=== PATIENT | male | born 1950 | race Caucasian/White ===

== ENCOUNTER 2019-08-20 16:14 | Inpatient (IN) | payer OTHER ==
[2019-08-20 16:36] LABS: #Eosinphils 0.1 thou/uL (0.0-0.7); #Monocytes 0.7 thou/uL (0.11-0.59); #Neutrophils 5.6 thou/uL (1.40-6.50); %Basophils 0.1 % (0.0-1.0); %Eosinophils 1.1 % (0.0-10.0); %Lymphocytes 13.8 % (21.0-51.0); %Monocytes 9.8 % (0.0-10.0); %Neutrophils 75.3 % (42.0-75.0); Mean Corpuscular HGB CONC 32.7 g/dL (32.0-36.0); Mean Corpuscular Hemoglobin 28.8 pg (27.0-31.0); Mean Corpuscular Volume 88.2 fL (78.0-98.0); Mean Platelet Volume 8.6 fL (7.4-10.4); Platelet Count 171 thou/uL (130-400); RBC Distribution Width 15.6 % (11.5-14.5); Red Blood Cell (RBC) Count 4.17 mill/uL (4.70-6.10); White Blood Cell (WBC) Count 7.5 thou/uL (4.8-10.8)
--- NOTE | 2019-08-20 16:53 | RAD ---
Exam: Chest one view HISTORY:Chest pain Comparison: None FINDINGS: Cardiac silhouette: Normal. There are sternotomy wires. Aorta: Unremarkable Pulmonary vessels: Normal. Surgical clips in the left hilum. Costophrenic angles: Clear LUNGS: Patchy interstitial and alveolar opacities. Pneumothorax: None Osseous abnormalities: None IMPRESSION: Patchy interstitial and alveolar opacities. Correlate for edema and/or infiltrate.
[2019-08-20 17:06] LABS: ALT (SGPT) 24 U/L (8-55); AST (SGOT) 20 U/L (5-34); Albumin 3.6 g/dL (3.4-4.8); Alkaline Phosphatase 191 U/L (40-110); Anion Gap 15 mmol/L (10-20); BUN (Urea Nitrogen) 17 mg/dL (8.4-25.7); Bilirubin, Total 0.2 mg/dL (0.2-1.2); Calc. Creatinine Clearance 0 mL/min (70-130); Calcium 8.3 mg/dL (7.8-10.44); Carbon Dioxide 21 mmol/L (23-31); Chloride 107 mmol/L (98-107); Estimated GFR-MDRD 85; Glucose 122 mg/dL (80-115); Protein, Total 6.6 g/dL (5.8-8.1); Sodium 139 mmol/L (136-145)
[2019-08-20 17:30] LABS: CKMB 1.8 ng/mL (0-6.6)
[2019-08-20 20:12] LABS: Troponin I 0.077 ng/mL (< 0.028)
[2019-08-20 21:26] VITALS: BMI 32.4
[2019-08-20] MEDS ORDERED: Nitroglycerin 0.4 MG TAB 1 EACH PO PRN (22:38)
[2019-08-20] MEDS ORDERED: Morphine 2 MG/ML SYRINGE SLOW IVP PRN (22:38)
[2019-08-20] MEDS ORDERED: traMADol HCl 50 MG TAB PO PRN (22:38)
[2019-08-20] MEDS: Nitroglycerin 0.4 MG TAB (25 Tab Bottle) SL PRN (23:02)
[2019-08-21] MEDS ORDERED: Enoxaparin Sodium 100 MG/ML SYRINGE SC SCH (00:15)
[2019-08-21 00:23] LABS: CKMB 8.8 ng/mL (0-6.6)
[2019-08-21] MEDS ORDERED: Dextrose 50% Abboject 50 ML SYRINGE SLOW IVP PRN (00:35)
[2019-08-21] MEDS ORDERED: Dextrose 5% in Water 1,000 ML IV PRN (00:35)
[2019-08-21] MEDS ORDERED: Insulin Regular 300 UNITS/3 ML VIAL SC PRN (00:35)
[2019-08-21] MEDS ORDERED: Ondansetron PF 4 MG/2 ML Vial IVP PRN (00:36)
[2019-08-21] MEDS ORDERED: Ondansetron ODT 4 MG TAB PO PRN (00:36)
[2019-08-21] MEDS ORDERED: Calcium Carbonate 500 MG ChewTAB PO PRN (00:36)
[2019-08-21] MEDS ORDERED: Acetaminophen 325 MG TAB PO PRN (00:36)
[2019-08-21] MEDS: Nitroglycerin 2% Ointment 1 INCH/1 GM Packet TOP SCH ×4 (00:50→23:49)
[2019-08-21] MEDS ORDERED: PROVENTIL INHALER 6.7 G (200 INHALATIONS) INH PRN (00:51)
[2019-08-21] MEDS ORDERED: Aspirin 325 MG TAB PO SCH (01:00)
--- NOTE | 2019-08-21 01:04 | HP ---
The patient was seen and examined on July,. CHIEF COMPLAINT: Chest discomfort. HISTORY OF PRESENT ILLNESS: The patient is a 69-year-old male with coronary artery disease, status post CABG; diabetes mellitus type 2; hypertension; peripheral arterial disease, status post stents, presented to the emergency room with chest discomfort. The patient underwent coronary artery bypass grafting in 2004. He had 7 ND post coronary artery bypass grafting. He currently has approximately 4 stents in the coronaries and 2 to 3 stents in the bilateral lower extremities. He is a poor historian and is unable to provide further details. He has chronic anginal pain , which improves with sublingual nitroglycerin. He takes sublingual nitroglycerin several times a week. He is an inmate. Around 2:00 p.m., he had sudden onset of chest discomfort that was substernal, associated with some shortness of breath and mild lightheadedness. He denies any nausea, vomiting, or diaphoresis. No syncope or palpitations reported. He had orthopnea; however, he attributes that to COPD. He denies recent immobilization or travel. When EMS arrived, his heart rate was in 40s. His pain was 5/10, constant. He took 3 nitroglycerin without much relief. PAST MEDICAL HISTORY: 1. Coronary artery disease, status post CABG in 2004. 2. Status post ND, post CABG, requiring several stents placement. He denies any stents prior to CABG. 3. Peripheral arterial disease, status post stents. 4. Chronic obstructive pulmonary disease. 5. Hypertension. 6. Diabetes mellitus type 2. 7. Diabetic neuropathy. 8. History of prostate cancer. 9. Hypothyroidism. 10. Gastroesophageal reflux disease. 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 12. Schizoaffective disorder. PAST SURGICAL HISTORY: 1. Coronary artery bypass grafting in 2004. 2. Coronary stents placement. 3. Bilateral lower extremity stent. SOCIAL HISTORY: The patient is a former smoker. No current use of alcohol, tobacco, or drug use. Full code. DPOA - family. Inmate. FAMILY HISTORY: Negative for heart disease. ALLERGIES: NO KNOWN DRUG ALLERGIES. HOME MEDICATIONS: 1. Aspirin 81 mg daily. 2. Carbamazepine 200 mg at bedtime. 3. Colace 100 mg b.i.d. 4. Albuterol inhaler as needed. 5. Sublingual nitroglycerin as needed. 6. Cymbalta 60 mg daily and 30 mg at bedtime. 7. Flovent 1 puff b.i.d. 8. Lasix 5 mg b.i.d. 9. Novolin N 33 units in the morning and 18 units at night. 10. Novolin R 5 units b.i.d. 11. Isosorbide mononitrate 120 mg daily. 12. Levothyroxine 75 mcg daily. 13. Lisinopril 2.5 mg daily. 14. Metformin 1000 mg b.i.d. 15. Metoprolol tartrate 75 mg b.i.d. 16. Dulera two puffs b.i.d. 17. Omeprazole 20 mg daily. 18. Potassium chloride 10 mEq daily. 19. Ranitidine 150 mg b.i.d. 20. Crestor 40 mg daily. 21. Terazosin 5 mg at bedtime. 22. Spiriva 18 mcg daily. REVIEW OF SYSTEMS: All other review of systems was reviewed and were found negative. PHYSICAL EXAMINATION: VITAL SIGNS: Temperature 98, respirations of 21, pulse rate of 51, blood pressure of 143/77, O2 saturations 97% on room air. GENERAL: A 69-year-old male, in no apparent distress. Denies any chest discomfort at this time. HEENT: Head, atraumatic and normocephalic. Sclerae anicteric. Moist mucous membranes. No oral lesion. NECK: Supple. No JVD. No carotid bruit. LUNGS: Clear to auscultation bilaterally. No wheezing, rales, or rhonchi. HEART: S1 and S2 present. Regular rate and rhythm. No rubs or gallops. Healed midline scar from previous CABG. ABDOMEN: Soft, obese. Bowel sounds present. No rebound or guarding. EXTREMITIES: Chronic edema in the left lower extremity per patient report. No calf tenderness. SKIN: Warm and dry. LYMPH NODES: No palpable lymph nodes in the neck. Peripheral vascular radial pulses palpable bilaterally. MUSCULOSKELETAL: No joint swelling tenderness. SKIN: Warm and dry. LYMPH NODE: No palpable lymph nodes in the neck. LABORATORY FINDINGS: WBC 7.5, hemoglobin 12, platelet of 171. Troponin of 0.029 on admission, repeat troponin was 0.432. CK-MB is pending at this time. Creatinine 0.89, sodium 139, potassium 4. LFTs otherwise in normal range except for alkaline phosphatase 191. BNP was 324. IMAGING STUDIES: Chest x-ray by my review showed probable pulmonary vascular congestion. EKG by my review showed sinus bradycardia with nonspecific ST-T wave changes in the lateral lead along with incomplete right bundle-branch block. IMPRESSION: 1. [id number] myocardial infarction. 2. Acute on chronic congestive heart failure exacerbation, ejection fraction unknown. 3. Diabetes mellitus type 2 with diabetic neuropathy. 4. Obesity with a BMI of 32.5. 5. Anemia, normochromic normocytic, suspected chronic. 6. Chronic kidney disease, stage 2. 7. Chronic obstructive pulmonary disease, appears to be compensated. 8. Benign prostatic hypertrophy/prostate cancer. 9. Gastroesophageal reflux disease. 10. Hypothyroidism. 11. Schizoaffective disorder. PLAN: The patient will be monitored on the telemetry unit. We will require 2 to 3 days for stabilization. We will start him on Lovenox 1 mg/kg. Nitro patch. IV diuretics. Echocardiogram will be obtained. We will try to obtain records from [facility]. Consult Cardiology. Continue aspirin along with AKIRA inhibitor. We will reduce metoprolol to 50 mg b.i.d. due to bradycardia. Resume other home medications. Nebulizer treatments as needed. Recheck troponin in a.m. Plan of care was discussed with the patient in detail. He stated understanding. Please note that, the patient was seen and examined on July,. Job ID: [id number] MTDD
[2019-08-21] MEDS: Ipratropium Bromide 2.5 ml Neb NEB SCH ×4 (03:17→19:07)
[2019-08-21] MEDS: Furosemide 20 MG/2 ML VIAL SLOW IVP SCH ×2 (05:28→14:53)
[2019-08-21] MEDS: Levothyroxine Sodium 75 MCG TAB PO SCH (05:28)
[2019-08-21] MEDS: Mometasone 100 MCG HFA INHALER INH SCH ×2 (06:58→19:05)
[2019-08-21 07:52] LABS: ALT (SGPT) 19 U/L (8-55); AST (SGOT) 26 U/L (5-34); Albumin 3.7 g/dL (3.4-4.8); Alkaline Phosphatase 198 U/L (40-110); Anion Gap 13 mmol/L (10-20); BUN (Urea Nitrogen) 13 mg/dL (8.4-25.7); Bilirubin, Total 0.3 mg/dL (0.2-1.2); Calc. Creatinine Clearance 118 mL/min (70-130); Calcium 8.5 mg/dL (7.8-10.44); Carbon Dioxide 23 mmol/L (23-31); Chloride 108 mmol/L (98-107); Estimated GFR-MDRD Greater than 90; Globulin 3.3 g/dL (2.4-3.5); Glucose 126 mg/dL (80-115); Sodium 140 mmol/L (136-145)
[2019-08-21 08:01] LABS: Band 4 % (5-11); Hemoglobin 12.2 g/dL (14.0-18.0); Lymphocytes 29 % (21-51); MDiff Complete? YES; Mean Corpuscular HGB CONC 32.4 g/dL (32.0-36.0); Mean Corpuscular Volume 89.3 fL (78.0-98.0); Mean Platelet Volume 9.1 fL (7.4-10.4); Monocytes 3 % (0-10); Neutrophil 64 % (42-75); Platelet Count 177 thou/uL (130-400); RBC Distribution Width 15.9 % (11.5-14.5); Red Blood Cell (RBC) Count 4.21 mill/uL (4.70-6.10); White Blood Cell (WBC) Count 6.2 thou/uL (4.8-10.8)
[2019-08-21 08:29] LABS: CKMB 30.8 ng/mL (0-6.6)
[2019-08-21] MEDS: Aspirin 325 mg Enteric Coated Tablet PO SCH (09:59)
[2019-08-21] MEDS: Potassium Chloride 10 MEQ TAB PO SCH ×2 (09:59→17:30)
[2019-08-21] MEDS: Enoxaparin Sodium 100 MG/ML SYRINGE SC SCH ×2 (09:59→20:09)
[2019-08-21] MEDS: Lisinopril 2.5 MG TAB PO SCH (09:59)
[2019-08-21] MEDS: Metoprolol Tartrate 50 MG TAB PO SCH ×2 (09:59→20:08)
[2019-08-21] MEDS: DULoxetine 60 MG CAP PO SCH (09:59)
--- NOTE | 2019-08-21 11:54 | CON ---
DATE OF CONSULTATION: 08/21/2019 INDICATION FOR CONSULTATION: A 69-year-old patient with non-ST segment elevation myocardial infarction. HISTORY OF PRESENT ILLNESS: This very unfortunate 69-year-old gentleman, who is incarcerated, has had a history of bypass surgery approximately 20 years ago. He said he had three-vessel bypass. He had seven myocardial infarction after that according to his records, he also had stent placement in the coronary artery. He also has peripheral vascular disease, which he has also undergone stent placement. His last apparent cardiac catheterization or stents were in 2011 and he thinks this is mainly these stents were placed in his legs, iliacs or superficial femoral arteries. He is uncertain as to where they were. Yesterday, while he was in the shelter, he was starting to lie down for a nap and thus he had some chest discomfort. He became short of breath. He took 2 nitroglycerins. Then, the pain did not resolve. He then went on and took another third nitroglycerin and then, went to the [facility], where he was given aspirin. The pain did not resolve. He presented to the emergency room and was admitted here to rule out myocardial infarction. The first set of cardiac enzymes showed a troponin I of 0.077, the second set was 0.432, and the third set is 3.746 compatible with a non-ST segment elevation myocardial infarction. The EKG does show a sinus rhythm with diffuse ST-segment changes, but no ST-segment elevation. He does have multiple risk factors for his disease. He has hypertension, hypercholesterolemia, and diabetes. I am uncertain whether or not his diabetes is under reasonable control, but he continues to have issues obviously and most likely progression of disease associated with his risk factors. His bypass surgery was at [facility] in [place], he said in 2004. The stents were placed in [place] and also the peripheral stents also he said were placed in [place]. At this time, his pain is now 1/10, when he said the worst he got prior to him being admitted was 8/10. Normally, he takes his nitroglycerin for these episodes and they resolve, but this time it did not. PAST MEDICAL HISTORY: Significant for the coronary artery disease as noted above with bypass surgery, angioplasty and stent placement. COPD, diabetes, hypertension, Hernandez palsy, gastroesophageal reflux disease, hypothyroidism, and prostate cancer. He has had right hand and wrist surgery. He has a schizoaffective disorder. He has peripheral vascular disease. He has undergone stent placement. He has peptic ulcer disease, this may be gastroesophageal reflux disease. It is also noted in the previous history of present illness, he said he last saw a maintenance mgr two years ago in [place]. SOCIAL HISTORY: He is incarcerated. He stopped smoking about 10 years ago. FAMILY HISTORY: He has had his mother had congestive heart failure. One brother has heart disease. He does not know exactly what it is. ALLERGIES: NONE. MEDICATIONS: Extensive list includes; 1. Carbamazepine. 2. Duloxetine. 3. Insulin. 4. Novolin N and as well as Novolin R. 5. He is on Crestor. 6. Spiriva inhaler. 7. Aspirin 81 mg a day. 8. Docusate sodium. 9. Dulera inhaler. 10. Flovent inhaler. 11. Furosemide 20 mg b.i.d. 12. Isosorbide mononitrate 60 mg a day. 13. Levothyroxine. 14. Lisinopril. 15. Metformin. 16. Metoprolol 25 mg twice a day, and is also another order here for 50 mg tablets twice a day, apparently he takes 75 mg twice a day. 17. Nitroglycerin as needed. 18. Omeprazole. 19. Potassium. 20. Proventil inhaler. 21. Ranitidine. 22. Terazosin. 23. At this time, he has been given Lovenox. REVIEW OF SYSTEMS: He complains of problems with his right eye after the Hernandez palsy. He does have some problems with vision based on that. He comes with shortness of breath with COPD. He has asthma. He has gastroesophageal reflux disease. He has had left leg edema, which had been present since after his surgery. He complains of recent coughing and congestion. Otherwise, 12-point review of systems is unremarkable. PHYSICAL EXAMINATION: GENERAL: Reveals a somewhat overweight elderly gentleman. VITAL SIGNS: Blood pressure 145/66, heart rate is 61, he is afebrile, and respiratory rate is 18. HEENT: Reveals head to be normocephalic and atraumatic. Carotid pulses are present. He has bilateral carotid bruits. This may be radiation from the aortic area. CHEST: Clear to auscultation. There were no rales, rhonchi, or wheezing. CARDIOVASCULAR: Reveals a regular rate and rhythm. I did not hear any bruits or thrills; however, he does have murmurs over the aortic area. It is also at the apex compatible with most likely some aortic valve sclerosis or stenosis as well as mitral valve regurgitation. He also has some systolic murmur at the lower sternal border, most likely compatible with some also tricuspid valve regurgitation. ABDOMEN: Soft and obese. Positive bowel sounds are present. EXTREMITIES: Show no clubbing or cyanosis. The left leg has 1+ lower extremity edema. He has well-healed surgical incision in the left lower extremity after saphenous vein graft bypass or vein graft retrieval. He has decreased femoral pulses, but any bilateral femoral bruits were noted. He also has a right palpable popliteal pulse. The left popliteal pulse is very difficult to palpate and the left pedal pulses are not palpable. I could palpate the right dorsalis pedis. NEUROLOGIC: The patient appears to be intact at this time. He is obviously in restraints due to him being a prisoner. SKIN: Warm and dry. LABORATORY DATA: EKG shows a normal sinus rhythm with diffuse ST-segment changes with some T-wave flattening and T-wave inversions throughout all leads either biphasic T-waves or either slight ST-segment depression. His chest x-ray, which was done yesterday afternoon shows some patchy infiltrates, some slight opacities, which appear to be slight either edema or infiltrates. There was no significant indication that he has any acute pulmonary edema. IMPRESSION AND PLAN: 1. Elderly gentleman with a history of known coronary artery disease, who is now suffered a non-ST segment elevation myocardial infarction. At this time, we will continue medical management with Lovenox since his pain has decreased down to 1 and his EKG still does not show ST-segment elevation. We will try to obtain the records from his last cardiac catheterization to determine whether or not he will be a candidate to undergo cardiac catheterization or not. Most likely, it will be somewhat difficult since he has peripheral vascular disease also, but he does have a right palpable pulse in the right groin, which is easily palpable or it is more easily palpable than the left and was still be a candidate if indicated. We will continue to trend his cardiac enzymes and we will continue his medications. We will review his medications and we will adjust as needed. We will continue the Lovenox for now and most likely he will need to undergo cardiac catheterization unless the reports of the last cardiac catheterization to see that he is not amenable to any further interventions. 2. History of diabetes. This will be dealt with by the Primary Care Service. His blood sugar appears to be under relatively good control at this time. His blood sugar this morning was 126. 3. History of chronic obstructive pulmonary disease. This also appears to be significant problem. He says he is unable to walk very far due to his chronic obstructive pulmonary disease and he developed chest pain. 4. History of hypertension, which is under good control. 5. Hypercholesterolemia. We will continue his statin medications. I will be more than happy to continue to follow this patient until we can decide whether or not he needs to proceed with cardiac catheterization or medical management. Job ID: [id number]
[2019-08-21 12:01] LABS: Troponin I 5.191 ng/mL (< 0.028)
[2019-08-21 14:18] LABS: Hemoglobin 12.2 g/dL (14.0-18.0); Platelet Count 158 thou/uL (130-400)
[2019-08-21 16:49] LABS: Troponin I 5.296 ng/mL (< 0.028)
[2019-08-21] MEDS: Nitroglycerin 0.4 MG TAB (25 Tab Bottle) SL PRN ×2 (18:59→19:07)
--- NOTE | 2019-08-21 19:06 | PDOC.HOSPP ---
- Subjective Encounter Date: 08/21/19 Encounter Time: 11:00 Subjective: Patient complains of pain in lower chest/abdomen area, states it is like a pressure. He states it was relieved with nitro-patch. No shortness of breath. Troponin positive and trending up. Cardiology involved. Plan for cath tomorrow - Objective Vital Signs & Weight: Vital Signs (12 hours) Temp Pulse Pulse Pulse Resp BP BP 08/21/19 16:33 97.5 F L 64 18 08/21/19 13:54 64 20 08/21/19 12:06 65 67 176/76 H 195/81 H 08/21/19 11:47 98.5 F 60 16 08/21/19 09:59 61 08/21/19 07:53 97.8 F 61 17 BP Pulse Ox Pulse Ox Pulse Ox 08/21/19 16:33 156/77 H 99 08/21/19 13:54 98 08/21/19 12:06 96 97 08/21/19 11:47 145/65 H 96 08/21/19 09:59 08/21/19 07:53 145/61 H 96 Weight Weight 221 lb I&O: 08/20/19 08/21/19 08/22/19 06:59 06:59 06:59 Intake Total 1000 Output Total 1150 Balance -150 Result Diagrams: 08/21/19 14:10 08/21/19 14:10 Additional Labs: Accuchecks 08/21/19 08/21/19 08/21/19 16:51 10:38 05:31 POC Glucose 129 H 134 H 127 H 08/20/19 21:15 POC Glucose 221 H Hospitalist ROS - Review of Systems Constitutional: denies: fever, chills - Medication Medications: Active Medications Generic Name Dose Route Start Last Admin Trade Name Freq PRN Reason Stop Dose Admin Acetaminophen 650 mg 08/21/19 00:36 08/21/19 00:50 Tylenol PO 650 mg Q4H PRN Administration Headache/Fever/Mild Pain (1-3) Albuterol/Ipratropium 3 ml 08/21/19 00:23 08/21/19 13:54 Duoneb NEB 3 ml Q4H PRN Administration SOB &/or Wheezing Aspirin 325 mg 08/21/19 09:00 08/21/19 09:59 Ecotrin PO 325 mg DAILY OMER Administration Duloxetine HCl 60 mg 08/21/19 09:00 08/21/19 09:59 Cymbalta PO 60 mg DAILY OMER Administration Enoxaparin Sodium 100 mg 08/21/19 09:00 08/21/19 09:59 Lovenox SC 08/21/19 21:30 100 mg 0900,2100 OMER Administration Furosemide 20 mg 08/21/19 06:00 08/21/19 14:53 Lasix SLOW IVP 20 mg 0600,1400 [facility] Administration Ipratropium [place] 2.5 ml 08/21/19 01:00 08/21/19 13:57 Atrovent NEB Not Given [id number] [facility] Levothyroxine Sodium 75 mcg 08/21/19 06:00 08/21/19 05:28 Synthroid PO 75 mcg 0600 [facility] Administration Lisinopril 2.5 mg 08/21/19 09:00 08/21/19 09:59 Zestril PO 2.5 mg DAILY [facility] Administration Metoprolol Tartrate 50 mg 08/21/19 09:00 08/21/19 09:59 Lopressor PO 50 mg BID [facility] Administration Mometasone Furoate 1 puff 08/21/19 06:30 08/21/19 06:58 Asmanex Hfa 100 Mcg INH 1 puff BID-RT [facility] Administration Nitroglycerin 0.4 mg 08/20/19 22:54 08/20/19 23:02 Nitrostat SL 0.4 mg Q5MIN PRN Administration Chest Pain Nitroglycerin 1 inch 08/21/19 01:00 08/21/19 17:31 Nitro-Bid 2% Ointment TOP 1 inch 0100,0900,1700 [facility] Administration Pantoprazole Sodium 40 mg 08/21/19 09:00 08/21/19 09:59 Protonix PO 40 mg DAILY [facility] Administration Potassium Chloride 10 meq 08/21/19 08:00 08/21/19 17:30 Klor-Con 10 PO 10 meq BID-WM [facility] Administration Tramadol HCl 50 mg 08/20/19 22:38 08/21/19 00:50 Ultram PO 50 mg Q4H PRN Administration Moderate Pain (4-6) - Exam General Appearance: NAD, awake alert General - other findings: appears to be in discomfort from pain Eye: PERRL, anicteric sclera ENT: normocephalic atraumatic, no oropharyngeal lesions, dry oral mucosa Neck: supple, symmetric, no JVD, no thyromegaly Heart: RRR, no murmur, no gallops, no rubs Respiratory: CTAB, no wheezes, no rales, no ronchi Gastrointestinal: soft, non-tender, non-distended, normal bowel sounds Extremities: no cyanosis, no clubbing, no edema Skin: normal turgor, no lesions, no rashes Neurological: cranial nerve grossly intact, normal sensation to touch, no focal deficits, no new deficit Hosp A/P - Plan This is 69 year old male with history of hypertension, diabetes, CAD, PVD who presented with chest pain, adimtted for NSTEMI #NSTEMI #Hypertension #Hypercholesterolemia - continue aspirin 325 mg daily, lovenox, lisinopril, metoprolol 50 mg bid, nitroglycerin, rosuvastatin - cardiology consulted, obtained outpatient records. Troponin trending up to > 5. Plan for cath tomorrow Diabetes type II - sliding scale - diabetic diet Peripheral vascular disease - continue aspirin Anemia - Hb 12, RDW elevated - check iron panel tomorrow COPD - continue breathing treatments Hypothyroidism - levothyroxine BPH - terazosin Schizoaffective - tegretol Code status: full code DVT prophylaxis : therapeutic lovenox Diet: NPO after midnight
[2019-08-21] MEDS ORDERED: Communication Order-Pharmacy FS SCH (20:00)
[2019-08-21] MEDS: Communication Order-Pharmacy FS SCH (20:06)
[2019-08-21] MEDS: Rosuvastatin 20 MG TAB PO SCH (20:07)
[2019-08-21] MEDS: Terazosin HCl 5 MG CAP PO SCH (20:08)
[2019-08-21] MEDS: DULoxetine 30 MG CAP PO SCH (20:08)
[2019-08-21] MEDS: carBAMazepine 200 MG TAB PO SCH (20:08)
[2019-08-22] MEDS: Ipratropium Bromide 2.5 ml Neb NEB SCH ×4 (01:48→20:27)
[2019-08-22 05:29] LABS: #Lymphocytes 0.9 thou/uL (1.20-3.40); #Monocytes 0.7 thou/uL (0.11-0.59); #Neutrophils 4.6 thou/uL (1.40-6.50); %Basophils 0.2 % (0.0-1.0); %Eosinophils 0.7 % (0.0-10.0); %Lymphocytes 14.9 % (21.0-51.0); %Monocytes 10.8 % (0.0-10.0); %Neutrophils 73.4 % (42.0-75.0); Hemoglobin 10.8 g/dL (14.0-18.0); Mean Corpuscular HGB CONC 33.5 g/dL (32.0-36.0); Mean Corpuscular Hemoglobin 29.2 pg (27.0-31.0); Mean Corpuscular Volume 87.3 fL (78.0-98.0); Mean Platelet Volume 9.2 fL (7.4-10.4); Platelet Count 162 thou/uL (130-400); RBC Distribution Width 15.7 % (11.5-14.5); Red Blood Cell (RBC) Count 3.71 mill/uL (4.70-6.10); White Blood Cell (WBC) Count 6.3 thou/uL (4.8-10.8)
[2019-08-22 05:52] LABS: Iron 28 ug/dL (65-175); Iron Binding Capacity, Total 248 mcg/dL (261-462)
[2019-08-22 05:54] LABS: ALT (SGPT) 16 U/L (8-55); AST (SGOT) 17 U/L (5-34); Albumin 3.2 g/dL (3.4-4.8); Alkaline Phosphatase 160 U/L (40-110); Anion Gap 11 mmol/L (10-20); BUN (Urea Nitrogen) 18 mg/dL (8.4-25.7); Bilirubin, Total 0.4 mg/dL (0.2-1.2); Calc. Creatinine Clearance 116 mL/min (70-130); Calcium 8.3 mg/dL (7.8-10.44); Carbon Dioxide 24 mmol/L (23-31); Chloride 109 mmol/L (98-107); Estimated GFR-MDRD 89; Globulin 2.8 g/dL (2.4-3.5); Glucose 155 mg/dL (80-115); Iron 28 ug/dL (65-175); Iron Binding Capacity, Total 248 mcg/dL (261-462); Potassium 3.8 mmol/L (3.5-5.1); Sodium 140 mmol/L (136-145)
[2019-08-22] MEDS: Furosemide 20 MG/2 ML VIAL SLOW IVP SCH ×2 (05:56→13:20)
[2019-08-22] MEDS: Nitroglycerin 2% Ointment 1 INCH/1 GM Packet TOP SCH ×2 (05:57→16:49)
[2019-08-22] MEDS: Levothyroxine Sodium 75 MCG TAB PO SCH (05:59)
[2019-08-22] MEDS: Lisinopril 2.5 MG TAB PO SCH (05:59)
[2019-08-22] MEDS: Aspirin 325 mg Enteric Coated Tablet PO SCH (05:59)
[2019-08-22] MEDS: DULoxetine 60 MG CAP PO SCH (05:59)
[2019-08-22] MEDS: Metoprolol Tartrate 50 MG TAB PO SCH ×2 (05:59→20:38)
[2019-08-22 07:31] LABS: Cardiac Risk 3.6 (Less than 4.5)
[2019-08-22] MEDS: Mometasone 100 MCG HFA INHALER INH SCH ×2 (07:43→20:27)
[2019-08-22] MEDS ORDERED: Lidocaine 1% (PF) 30 ML VIAL ONE (09:18)
[2019-08-22] MEDS ORDERED: Iopamidol 370 76% 100 ML VIAL ONE (09:37)
[2019-08-22] MEDS ORDERED: Sodium Chloride 0.9% 200 ML IV PRN (10:59)
[2019-08-22] MEDS ORDERED: Nitroglycerin 0.4 MG TAB (25 Tab Bottle) SL PRN (10:59)
[2019-08-22] MEDS ORDERED: Acetaminophen/Codeine 30-300mg Tablet PO PRN ×2 (10:59)
[2019-08-22] MEDS: Potassium Chloride 10 MEQ TAB PO SCH ×2 (11:09→16:49)
[2019-08-22 14:47] LABS: Troponin I 2.633 ng/mL (< 0.028)
--- NOTE | 2019-08-22 17:28 | PDOC.HOSPP ---
- Subjective Encounter Date: 08/22/19 Encounter Time: 17:26 Subjective: Patient had cardiac cath today. All vessels patent. Has chronic total occlusion of main vessels. Patient states his chest pain has significantly improved since receiving ranolazine. Wants to get that at home but worried about the cost. Patient reports shortness of breath on exertion. Wants oxygen on discharge. O2 sat 98% on room air at rest, but drops to 85% on exertion, so patient qualifies for 2L of oxygen. Patient d/c but unable to get bed today at [facility] - Objective Vital Signs & Weight: Vital Signs (12 hours) Temp Pulse Pulse Pulse Resp BP BP 08/22/19 16:00 98.0 F 61 18 08/22/19 14:05 67 66 131/71 08/22/19 12:58 66 18 08/22/19 07:50 98.1 F 57 L 18 08/22/19 07:34 56 L 20 08/22/19 05:59 65 149/70 H BP BP Pulse Ox Pulse Ox Pulse Ox Pulse Ox Pulse Ox 08/22/19 16:00 117/58 L 96 08/22/19 14:05 160/58 H 88 L 91 L 84 L 94 L 08/22/19 12:58 98 08/22/19 07:50 116/64 96 08/22/19 07:34 99 08/22/19 05:59 Weight Weight 216 lb 1.6 oz I&O: 08/21/19 08/22/19 08/23/19 06:59 06:59 06:59 Intake Total 1480 Output Total 1750 Balance -270 Result Diagrams: 08/22/19 04:33 08/22/19 04:33 Additional Labs: Accuchecks 08/22/19 08/22/19 08/22/19 15:58 11:02 05:37 POC Glucose 187 H 135 H 164 H 08/21/19 20:16 POC Glucose 137 H Hospitalist ROS - Review of Systems Constitutional: denies: fever, chills ENT: denies: ear discharge, mouth swelling Cardiovascular: denies: chest pain, palpitations Gastrointestinal: denies: vomiting - Medication Medications: Active Medications Generic Name Dose Route Start Last Admin Trade Name Freq PRN Reason Stop Dose Admin Acetaminophen 650 mg 08/21/19 00:36 08/21/19 00:50 Tylenol PO 650 mg Q4H PRN Administration Headache/Fever/Mild Pain (1-3) Albuterol/Ipratropium 3 ml 08/21/19 00:23 08/22/19 07:34 Duoneb NEB 3 ml Q4H PRN Administration SOB &/or Wheezing Aspirin 325 mg 08/21/19 09:00 08/22/19 05:59 Ecotrin PO 325 mg DAILY OMER Administration Carbamazepine 200 mg 08/21/19 21:00 08/21/19 20:08 Tegretol PO 200 mg HS OMER Administration Duloxetine HCl 30 mg 08/21/19 21:00 08/21/19 20:08 Cymbalta PO 30 mg HS OMER Administration Duloxetine HCl 60 mg 08/21/19 09:00 08/22/19 05:59 Cymbalta PO 60 mg DAILY OMER Administration Furosemide 20 mg 08/21/19 06:00 08/22/19 13:20 Lasix SLOW IVP 20 mg 0600,1400 OMER Administration Ipratropium [place] 2.5 ml 08/21/19 01:00 08/22/19 12:58 Atrovent NEB 2.5 ml [id number] OMER Administration Levothyroxine Sodium 75 mcg 08/21/19 06:00 08/22/19 05:59 Synthroid PO 75 mcg 0600 OMER Administration Lisinopril 2.5 mg 08/21/19 09:00 08/22/19 05:59 Zestril PO 2.5 mg DAILY OMER Administration Metoprolol Tartrate 50 mg 08/21/19 09:00 08/22/19 05:59 Lopressor PO 50 mg BID OMER Administration Miscellaneous Information 0 each 08/21/19 09:30 08/21/19 20:06 Communication Order-Pharmacy FS Not Given 0930 OMER Mometasone Furoate 1 puff 08/21/19 06:30 08/22/19 07:43 Asmanex Hfa 100 Mcg INH 1 puff BID-RT OMER Administration Nitroglycerin 1 inch 08/21/19 01:00 08/22/19 16:49 Nitro-Bid 2% Ointment TOP 1 inch 0100,0900,1700 OMER Administration Pantoprazole Sodium 40 mg 08/21/19 09:00 08/22/19 05:59 Protonix PO 40 mg DAILY OMER Administration Potassium Chloride 10 meq 08/21/19 08:00 08/22/19 16:49 Klor-Con 10 PO 10 meq BID-WM OMER Administration Rosuvastatin Calcium 40 mg 08/21/19 21:00 08/21/19 20:07 Crestor PO 40 mg HS OMER Administration Sodium Chloride 10 ml 08/21/19 00:36 08/21/19 20:09 Flush - Normal Saline IVF 10 ml PRN PRN Administration Saline Flush Terazosin HCl 5 mg 08/21/19 21:00 08/21/19 20:08 Hytrin PO 5 mg HS OMER Administration Tramadol HCl 50 mg 08/20/19 22:38 08/21/19 00:50 Ultram PO 50 mg Q4H PRN Administration Moderate Pain (4-6) - Exam General Appearance: NAD, awake alert Eye: PERRL, anicteric sclera ENT: normocephalic atraumatic, no oropharyngeal lesions Neck: supple, symmetric, no JVD, no thyromegaly Heart: RRR, no murmur, no gallops, no rubs Respiratory: CTAB, no wheezes, no rales, no ronchi Gastrointestinal: soft, non-tender, non-distended Extremities: no cyanosis Skin: normal turgor, no lesions, no rashes Neurological: cranial nerve grossly intact, normal sensation to touch, no focal deficits, no new deficit Musculoskeletal: normal tone, normal strength, no muscle wasting Psychiatric: normal affect, normal behavior, A&O x 3, oriented to person Hosp A/P - Plan ECHO: mild LVH, probable diastolic dysfunction. EF40-45%. Mild global hypokinesis. Septum akinetic. Normal RV size and functoin. LA moderately dilated. Mildly enlarged. Trace MR, trivial aortic regurg, mild pulmonic regurg Cath report: EF 50-55%, inferior wall hypokinetic. All three [place] vessels occluded. Chest Xray 08/20: patchy interstitial infiltrates This is 69 year old male with history of hypertension, diabetes, CAD, PVD who presented with chest pain, admitted for NSTEMI #NSTEMI #Hypertension #Hypercholesterolemia - continue aspirin 325 mg daily, lovenox, lisinopril, metoprolol 50 mg bid, nitroglycerin, rosuvastatin and ranolazine - patient had cardiac cath has, 100% occlusion of LMCA, LAD,RCA. All stents patent. Possibly that patient had thrombosis of small vessel. Repeat troponin negative Acute hypoxic respiratory failure from NSTEMI -patient noted to desaturate to 85% on exertion and qualifies for 2L. However needs [facility] bed at snf for this, currently pending - will repeat chest Xray Diabetes type II - sliding scale - diabetic diet Peripheral vascular disease - continue aspirin Anemia - Hb 12, RDW elevated - check iron panel tomorrow COPD - continue breathing treatments Hypothyroidism - levothyroxine BPH - terazosin Schizoaffective - tegretol Dispo: [facility], on O2 Code status: full code DVT prophylaxis : therapeutic lovenox Diet: NPO after midnight
[2019-08-22] MEDS: Insulin Regular 300 UNITS/3 ML VIAL SC PRN (17:31)
[2019-08-22] MEDS: Rosuvastatin 20 MG TAB PO SCH (20:37)
[2019-08-22] MEDS: DULoxetine 30 MG CAP PO SCH (20:37)
[2019-08-22] MEDS: Terazosin HCl 5 MG CAP PO SCH (20:38)
[2019-08-22] MEDS: carBAMazepine 200 MG TAB PO SCH (20:45)
[2019-08-23] MEDS: Ipratropium Bromide 2.5 ml Neb NEB SCH ×3 (00:36→12:16)
[2019-08-23] MEDS: Furosemide 20 MG/2 ML VIAL SLOW IVP SCH ×2 (05:13→14:56)
[2019-08-23] MEDS: Levothyroxine Sodium 75 MCG TAB PO SCH (05:14)
[2019-08-23 05:55] LABS: Hemoglobin 10.3 g/dL (14.0-18.0); Mean Corpuscular HGB CONC 31.3 g/dL (32.0-36.0); Mean Corpuscular Hemoglobin 27.4 pg (27.0-31.0); Mean Corpuscular Volume 87.4 fL (78.0-98.0); Mean Platelet Volume 8.7 fL (7.4-10.4); Platelet Count 151 thou/uL (130-400); RBC Distribution Width 15.7 % (11.5-14.5); Red Blood Cell (RBC) Count 3.77 mill/uL (4.70-6.10); White Blood Cell (WBC) Count 6.9 thou/uL (4.8-10.8)
[2019-08-23 06:22] LABS: ALT (SGPT) 17 U/L (8-55); AST (SGOT) 14 U/L (5-34); Albumin 3.4 g/dL (3.4-4.8); Alkaline Phosphatase 162 U/L (40-110); Anion Gap 10 mmol/L (10-20); BUN (Urea Nitrogen) 16 mg/dL (8.4-25.7); Bilirubin, Total 0.6 mg/dL (0.2-1.2); Calc. Creatinine Clearance 104 mL/min (70-130); Calcium 8.5 mg/dL (7.8-10.44); Carbon Dioxide 25 mmol/L (23-31); Chloride 109 mmol/L (98-107); Estimated GFR-MDRD 79; Glucose 148 mg/dL (80-115); Potassium 4.1 mmol/L (3.5-5.1); Protein, Total 6.4 g/dL (5.8-8.1); Sodium 140 mmol/L (136-145)
[2019-08-23] MEDS: Mometasone 100 MCG HFA INHALER INH SCH ×2 (06:37→18:52)
[2019-08-23] MEDS: Communication Order-Pharmacy FS SCH ×2 (07:50→14:33)
[2019-08-23] MEDS: Potassium Chloride 10 MEQ TAB PO SCH ×2 (07:54→17:49)
[2019-08-23] MEDS: DULoxetine 60 MG CAP PO SCH (07:54)
[2019-08-23] MEDS: Aspirin 325 mg Enteric Coated Tablet PO SCH (07:54)
[2019-08-23] MEDS: Nitroglycerin 2% Ointment 1 INCH/1 GM Packet TOP SCH ×3 (10:27→17:49)
[2019-08-23] MEDS: Lisinopril 2.5 MG TAB PO SCH (10:27)
[2019-08-23] MEDS: Metoprolol Tartrate 50 MG TAB PO SCH ×2 (10:27→20:29)
--- NOTE | 2019-08-23 12:31 | RAD ---
XR Chest 1 View Portable History: Hypoxia Comparison: Radiograph August 20, 2019 Findings: Progressive pulmonary venous congestion and developing interstitial and alveolar edema. Sma ll effusions. Heart size is enlarged. No acute osseous abnormality. Impression: Mild decompensated congestive heart failure.
--- NOTE | 2019-08-23 14:16 | PDOC.CPN ---
- Subjective Date: 08/23/19 Time: 14:23 Interval history: The pt seen and examined. No overnight events. No cardiac complaints. He is on 2LNC. - Objective Allergies/Adverse Reactions: Allergies Allergy/AdvReac Type Severity Reaction Status Date / Time No Known Allergies Allergy Verified 08/20/19 21:27 Visit Medications: Current Medications Acetaminophen (Tylenol) 650 mg PO Q4H PRN PRN Reason: Headache/Fever/Mild Pain (1-3) Last Admin: 08/21/19 00:50 Dose: 650 mg Acetaminophen/Codeine Phosphate (Tylenol #3) 1 tab PO Q4H PRN PRN Reason: Mild Pain (1-3) Acetaminophen/Codeine Phosphate (Tylenol #3) 2 tab PO Q4H PRN PRN Reason: Moderate Pain (4-6) Albuterol Sulfate (Proventil Hfa) 2 puff INH Q6H PRN PRN Reason: SOB &/or Wheezing Albuterol/Ipratropium (Duoneb) 3 ml NEB Q4H PRN PRN Reason: SOB &/or Wheezing Last Admin: 08/22/19 07:34 Dose: 3 ml Aspirin (Ecotrin) 325 mg PO DAILY [facility] Last Admin: 08/23/19 07:54 Dose: 325 mg Calcium Carbonate (Tums) 1,000 mg PO Q4H PRN PRN Reason: Heartburn or Indigestion Carbamazepine (Tegretol) 200 mg PO HS [facility] Last Admin: 08/22/19 20:45 Dose: 200 mg Dextrose/Water (Dextrose 50%) 25 gm SLOW IVP PRN PRN PRN Reason: Hypoglycemia Duloxetine HCl (Cymbalta) 30 mg PO HS [facility] Last Admin: 08/22/19 20:37 Dose: 30 mg Duloxetine HCl (Cymbalta) 60 mg PO DAILY [facility] Last Admin: 08/23/19 07:54 Dose: 60 mg Furosemide (Lasix) 20 mg SLOW IVP 0600,1400 [facility] Last Admin: 08/23/19 05:13 Dose: 20 mg Glucagon (Glucagon) 1 mg IM PRN PRN PRN Reason: Hypoglycemia Dextrose/Water (D5w) 1,000 mls @ 0 mls/hr IV .Q0M PRN PRN Reason: Hypoglycemia Insulin Human Regular (Humulin R) 0 units SC .MODERATE SLIDING SC PRN PRN Reason: Moderate Correctional Scale Last Admin: 08/22/19 17:31 Dose: 2 units Insulin Human Regular (Humulin R) 0 units SC .BEDTIME SLIDING SC PRN PRN Reason: Bedtime Correctional Scale Last Admin: 08/22/19 22:31 Dose: 2 unit Ipratropium [place] (Atrovent) 2.5 ml NEB [id number] [facility] Last Admin: 08/23/19 12:16 Dose: 2.5 ml Levothyroxine Sodium (Synthroid) 75 mcg PO 0600 [facility] Last Admin: 08/23/19 05:14 Dose: 75 mcg Lisinopril (Zestril) 2.5 mg PO DAILY [facility] Last Admin: 08/23/19 10:27 Dose: 2.5 mg Metoprolol Tartrate (Lopressor) 50 mg PO BID [facility] Last Admin: 08/23/19 10:27 Dose: 50 mg Miscellaneous Information (Communication Order-Pharmacy) 0 each FS 0930 [facility] Last Admin: 08/23/19 07:50 Dose: Not Given Mometasone Furoate (Asmanex Hfa 100 Mcg) 1 puff INH BID-RT [facility] Last Admin: 08/23/19 06:37 Dose: 1 puff Nitroglycerin (Nitro-Bid 2% Ointment) 1 inch TOP 0100,0900,1700 [facility] Last Admin: 08/23/19 10:27 Dose: 1 inch Nitroglycerin (Nitrostat) 0.4 mg SL Q5MIN PRN PRN Reason: Chest Pain Ondansetron HCl (Zofran Odt) 4 mg PO Q6H PRN PRN Reason: Nausea/Vomiting Ondansetron HCl (Zofran) 4 mg IVP Q6H PRN PRN Reason: Nausea/Vomiting Pantoprazole Sodium (Protonix) 40 mg PO DAILY [facility] Last Admin: 08/23/19 07:54 Dose: 40 mg Potassium Chloride (Klor-Con 10) 10 meq PO BID-[facility] Last Admin: 08/23/19 07:54 Dose: 10 meq Ranolazine (Ranexa) 500 mg PO BID [facility] Last Admin: 08/23/19 07:54 Dose: 500 mg Rosuvastatin Calcium (Crestor) 40 mg PO HS [facility] Last Admin: 08/22/19 20:37 Dose: 40 mg Sodium Chloride (Flush - Normal Saline) 10 ml IVF PRN PRN PRN Reason: Saline Flush Last Admin: 08/21/19 20:09 Dose: 10 ml Terazosin HCl (Hytrin) 5 mg PO HS [facility] Last Admin: 08/22/19 20:38 Dose: 5 mg Tramadol HCl (Ultram) 50 mg PO Q4H PRN PRN Reason: Moderate Pain (4-6) Last Admin: 08/21/19 00:50 Dose: 50 mg Vital Signs & Weight: Vital Signs Temp Pulse Pulse Pulse Pulse Resp BP 08/23/19 12:16 54 L 16 08/23/19 11:50 97.8 F 56 L 18 08/23/19 10:27 65 134/63 08/23/19 10:05 72 70 58 L 08/23/19 07:45 97.8 F 55 L 16 08/23/19 06:40 63 16 08/23/19 06:37 64 16 08/23/19 04:00 97.5 F L 72 20 BP BP BP Pulse Ox Pulse Ox Pulse Ox 08/23/19 12:16 96 08/23/19 11:50 119/72 95 08/23/19 10:27 08/23/19 10:05 181/88 H 134/64 89 L 94 L 08/23/19 07:45 113/58 L 93 L 08/23/19 06:40 97 08/23/19 06:37 97 08/23/19 04:00 107/49 L 97 Weight 220 lb 1.6 oz - Physical Exam General: alert & oriented x3 Neck: supple neck Cardiac: regular rate and rhythm, S1/S2 Lungs: no wheezes, decreased breath sounds Extremities: no cyanosis Skin: clear Musculoskeletal: decreased range of motion - Labs Result Diagrams: 08/23/19 05:34 08/23/19 05:34 Troponin/CKMB CK-MB (CK-2) 30.8 ng/mL (0-6.6) H* 08/21/19 07:12 Troponin I 2.633 ng/mL (< 0.028) H* 08/22/19 14:08 - Telemetry Sinus rhythms and dysrhythmias: sinus rhythm - Assessment/Plan Assessment/Plan: 1. NSTEMI - S/p LHC on 08/22/2019 with patent CABG graft with distal vessels all < 2.0-2.5mm in diameter . medical treatment only, starting Ranexa. 2. 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 CAD with hx of CABG 4. HTN - stable 5. DM type 2 - 6. Anemia - 7. PAD - 8. COPD - on 2LNC 9. Hypothyroidism - levothyroxine 10. BPH - terazosin 11. Schizoaffective - tegretol 12. PVD: patent stents in bilat Common iliacs and prox. external iliacs. MAR reviewed * Echo in 07/2019 with EF 40-45%, prob dd, mild LVH, mild global hypokinesis. akenetic Septum, mod dilated LA, trace MR, trivial AR, mild ID. From cardiac standpoint he can be d/c'd back to the facility and f/u with cardiology in [place]. I will sign off.
[2019-08-23] MEDS ORDERED: Albuterol Sulfate 1.25 MG/3 ML NEB NEB PRN (17:34)
[2019-08-23] MEDS ORDERED: Furosemide 20 MG/2 ML VIAL SLOW IVP SCH (17:45)
[2019-08-23] MEDS ORDERED: methylPREDNISolone Sod Succ 40 MG VIAL IVP SCH (17:45)
--- NOTE | 2019-08-23 17:48 | PDOC.HOSPP ---
- Subjective Encounter Date: 08/23/19 Encounter Time: 17:30 Subjective: The patient states he has increasing shortness of breath just going to use the urinal. He also wants to cough but is unable to get up his phlegm. States that when he walked on room air he dropped to 89% but he feels he wasn't walked long enough and wants to walk longer to get an accurate assessment. He denies chest pain. - Objective Vital Signs & Weight: Vital Signs (12 hours) Temp Pulse Pulse Pulse Pulse Resp BP 08/23/19 15:00 98.2 F 53 L 18 08/23/19 12:16 54 L 16 08/23/19 11:50 97.8 F 56 L 18 08/23/19 10:27 65 134/63 08/23/19 10:05 72 70 58 L 08/23/19 07:45 97.8 F 55 L 16 08/23/19 06:40 63 16 08/23/19 06:37 64 16 BP BP BP Pulse Ox Pulse Ox Pulse Ox 08/23/19 15:00 117/56 L 97 08/23/19 12:16 96 08/23/19 11:50 119/72 95 08/23/19 10:27 08/23/19 10:05 181/88 H 134/64 89 L 94 L 08/23/19 07:45 113/58 L 93 L 08/23/19 06:40 97 08/23/19 06:37 97 Weight Weight 220 lb 1.6 oz I&O: 08/22/19 08/23/19 08/24/19 06:59 06:59 06:59 Intake Total 1480 800 Output Total 1750 450 Balance -270 350 Result Diagrams: 08/23/19 05:34 08/23/19 05:34 Additional Labs: Accuchecks 08/23/19 08/23/19 08/23/19 17:07 10:47 05:46 POC Glucose 140 H 124 H 145 H 08/22/19 20:27 POC Glucose 214 H Hospitalist ROS - Review of Systems Constitutional: denies: fever, chills Eyes: denies: pain, vision change - Medication Medications: Active Medications Generic Name Dose Route Start Last Admin Trade Name Freq PRN Reason Stop Dose Admin Acetaminophen 650 mg 08/21/19 00:36 08/21/19 00:50 Tylenol PO 650 mg Q4H PRN Administration Headache/Fever/Mild Pain (1-3) Albuterol/Ipratropium 3 ml 08/21/19 00:23 08/22/19 07:34 Duoneb NEB 3 ml Q4H PRN Administration SOB &/or Wheezing Aspirin 325 mg 08/21/19 09:00 08/23/19 07:54 Ecotrin PO 325 mg DAILY OMER Administration Carbamazepine 200 mg 08/21/19 21:00 08/22/19 20:45 Tegretol PO 200 mg HS OMER Administration Duloxetine HCl 30 mg 08/21/19 21:00 08/22/19 20:37 Cymbalta PO 30 mg HS OMER Administration Duloxetine HCl 60 mg 08/21/19 09:00 08/23/19 07:54 Cymbalta PO 60 mg DAILY OMER Administration Insulin Human Regular 0 units 08/21/19 00:35 08/22/19 17:31 Humulin R SC 2 units .MODERATE SLIDING SC PRN Administration Moderate Correctional Scale Insulin Human Regular 0 units 08/21/19 00:35 08/22/19 22:31 Humulin R SC 2 unit .BEDTIME SLIDING SC PRN Administration Bedtime Correctional Scale Levothyroxine Sodium 75 mcg 08/21/19 06:00 08/23/19 05:14 Synthroid PO 75 mcg 0600 OMER Administration Lisinopril 2.5 mg 08/21/19 09:00 08/23/19 10:27 Zestril PO 2.5 mg DAILY OMER Administration Metoprolol Tartrate 50 mg 08/21/19 09:00 08/23/19 10:27 Lopressor PO 50 mg BID OMER Administration Miscellaneous Information 0 each 08/21/19 09:30 08/23/19 14:33 Communication Order-Pharmacy FS Not Given 0930 OMER Mometasone Furoate 1 puff 08/21/19 06:30 08/23/19 06:37 Asmanex Hfa 100 Mcg INH 1 puff BID-RT OMER Administration Nitroglycerin 1 inch 08/21/19 01:00 08/23/19 10:27 Nitro-Bid 2% Ointment TOP 1 inch 0100,0900,1700 OMER Administration Pantoprazole Sodium 40 mg 08/21/19 09:00 08/23/19 07:54 Protonix PO 40 mg DAILY OMER Administration Potassium Chloride 10 meq 08/21/19 08:00 08/23/19 07:54 Klor-Con 10 PO 10 meq BID-WM OMER Administration Ranolazine 500 mg 08/22/19 21:00 08/23/19 07:54 Ranexa PO 500 mg BID OMER Administration Rosuvastatin Calcium 40 mg 08/21/19 21:00 08/22/19 20:37 Crestor PO 40 mg HS OMER Administration Sodium Chloride 10 ml 08/21/19 00:36 08/21/19 20:09 Flush - Normal Saline IVF 10 ml PRN PRN Administration Saline Flush Terazosin HCl 5 mg 08/21/19 21:00 08/22/19 20:38 Hytrin PO 5 mg HS OMER Administration Tramadol HCl 50 mg 08/20/19 22:38 08/21/19 00:50 Ultram PO 50 mg Q4H PRN Administration Moderate Pain (4-6) - Exam General Appearance: NAD, awake alert Eye: PERRL, anicteric sclera ENT: normocephalic atraumatic, no oropharyngeal lesions Neck: supple, symmetric, no JVD, no thyromegaly Heart: RRR, no murmur, no gallops, no rubs Respiratory: CTAB, no rales, no ronchi Respiratory - other findings: diffuse wheezing present . On oxygen 2L Gastrointestinal: soft, non-tender, non-distended, normal bowel sounds Extremities: no cyanosis, no clubbing, no edema Skin: normal turgor, no lesions, no rashes Neurological: cranial nerve grossly intact, normal sensation to touch, no focal deficits, no new deficit Musculoskeletal: normal tone, normal strength, no muscle wasting Psychiatric: normal affect, normal behavior, A&O x 3 Hosp A/P - Plan ECHO: mild LVH, probable diastolic dysfunction. EF40-45%. Mild global hypokinesis. Septum akinetic. Normal RV size and functoin. LA moderately dilated. Mildly enlarged. Trace MR, trivial aortic regurg, mild pulmonic regurg Cath report: EF 50-55%, inferior wall hypokinetic. All three [place] vessels occluded. Chest Xray 08/20: patchy interstitial infiltrates Chest X ray 08/21: mild decompensated heart failure This is 69 year old male with history of hypertension, diabetes, CAD, PVD who presented with chest pain, admitted for NSTEMI #NSTEMI #Hypertension #Hypercholesterolemia - continue aspirin 325 mg daily, lovenox, lisinopril, metoprolol 50 mg bid, nitroglycerin, rosuvastatin and ranolazine - patient had cardiac cath has, 100% occlusion of LMCA, LAD,RCA. All stents patent. Possibly that patient had thrombosis of small vessel. Repeat troponin 2.0 downtrending Acute hypoxic respiratory failure from NSTEMI with acute diastolic heart failure vs COPD exacerbation -patient noted to desaturate to 85% on exertion. On lasix 20 mg IV bid, increase to 40 mg IV bid - add methylprednisolone 40 mg IV, duoneb q4 hours, albuterol q2 hours prn, mucinex Diabetes type II - sliding scale - diabetic diet Peripheral vascular disease - continue aspirin Anemia of Chronic disease with possible iron deficiency - Hb 12, RDW elevated - iron sat 11%, consider IV iron COPD - continue breathing treatments Hypothyroidism - levothyroxine BPH - terazosin Schizoaffective - tegretol Dispo: reevaluate oxygen requirements after steroid treatment, increasing lasix. Prefer 6 minute walk test for oxygen evaluation Code status: full code DVT prophylaxis : therapeutic lovenox Diet: NPO after midnight
[2019-08-23] MEDS: Rosuvastatin 20 MG TAB PO SCH (20:29)
[2019-08-23] MEDS: DULoxetine 30 MG CAP PO SCH (20:29)
[2019-08-23] MEDS: carBAMazepine 200 MG TAB PO SCH (20:29)
[2019-08-23] MEDS: Terazosin HCl 5 MG CAP PO SCH (20:29)
[2019-08-23] MEDS: guaiFENesin ER 600 MG TAB PO SCH (20:31)
[2019-08-24] MEDS: Nitroglycerin 2% Ointment 1 INCH/1 GM Packet TOP SCH ×3 (01:39→17:22)
[2019-08-24] MEDS: Furosemide 40 MG/4 ML VIAL SLOW IVP SCH ×2 (05:55→14:30)
[2019-08-24] MEDS: Levothyroxine Sodium 75 MCG TAB PO SCH (05:55)
[2019-08-24] MEDS: Mometasone 100 MCG HFA INHALER INH SCH ×2 (06:59→18:31)
[2019-08-24] MEDS: Communication Order-Pharmacy FS SCH (07:29)
[2019-08-24] MEDS ORDERED: methylPREDNISolone Sod Succ 40 MG VIAL IVP SCH (09:00)
[2019-08-24] MEDS: guaiFENesin ER 600 MG TAB PO SCH ×2 (09:36→20:46)
[2019-08-24] MEDS: Potassium Chloride 10 MEQ TAB PO SCH ×2 (09:36→17:22)
[2019-08-24] MEDS: Aspirin 325 mg Enteric Coated Tablet PO SCH (09:36)
[2019-08-24] MEDS: DULoxetine 60 MG CAP PO SCH (09:36)
[2019-08-24] MEDS: Lisinopril 2.5 MG TAB PO SCH (09:36)
[2019-08-24] MEDS: Metoprolol Tartrate 50 MG TAB PO SCH ×2 (09:38→20:45)
[2019-08-24 09:43] LABS: Hemoglobin 11.4 g/dL (14.0-18.0); Platelet Count 154 thou/uL (130-400)
[2019-08-24] MEDS: Insulin Regular 300 UNITS/3 ML VIAL SC PRN ×3 (09:50→17:26)
[2019-08-24] MEDS: Rosuvastatin 20 MG TAB PO SCH (20:43)
[2019-08-24] MEDS: DULoxetine 30 MG CAP PO SCH (20:45)
[2019-08-24] MEDS: Terazosin HCl 5 MG CAP PO SCH (20:45)
[2019-08-24] MEDS: carBAMazepine 200 MG TAB PO SCH (20:45)
[2019-08-25] MEDS: Nitroglycerin 2% Ointment 1 INCH/1 GM Packet TOP SCH (02:20)
[2019-08-25 03:57] VITALS: BP 132/67; TEMP 97.4
[2019-08-25] MEDS: Furosemide 40 MG/4 ML VIAL SLOW IVP SCH (05:56)
[2019-08-25] MEDS: Levothyroxine Sodium 75 MCG TAB PO SCH (05:56)
[2019-08-25] MEDS: Mometasone 100 MCG HFA INHALER INH SCH (07:34)
== END 2019-08-25 07:15 | disposition short-term general hospital (02) | DRG 280 ==
LOC: ERS 16:14 → OBSVTOIN 17:51 → 2SW 17:51 → 2NO 08-21 16:28
PROVIDERS: ADMIT Internal Medicine; ATTEND Internal Medicine
PROC: 4A023N7 Measurement of Cardiac Sampling and Pressure, Left Heart, Percutaneous Approach (ICD-10-PCS; principal; 2019-08-22)
PROC: B2181ZZ Fluoroscopy of Left Internal Mammary Bypass Graft using Low Osmolar Contrast (ICD-10-PCS; 2019-08-22)
PROC: B2131ZZ Fluoroscopy of Multiple Coronary Artery Bypass Grafts using Low Osmolar Contrast (ICD-10-PCS; 2019-08-22)
PROC: B2111ZZ Fluoroscopy of Multiple Coronary Arteries using Low Osmolar Contrast (ICD-10-PCS; 2019-08-22)
PROC: B41G1ZZ Fluoroscopy of Left Lower Extremity Arteries using Low Osmolar Contrast (ICD-10-PCS; 2019-08-22)
PROC: B41F1ZZ Fluoroscopy of Right Lower Extremity Arteries using Low Osmolar Contrast (ICD-10-PCS; 2019-08-22)
DX: I21.4 Non-ST elevation (NSTEMI) myocardial infarction (principal); J96.01 Acute respiratory failure with hypoxia; I50.43 Acute on chronic combined systolic (congestive) and diastolic (congestive) heart failure; I13.0 Hypertensive heart and chronic kidney disease with heart failure and stage 1 through stage 4 chronic kidney disease, or unspecified chronic kidney disease; I25.10 Atherosclerotic heart disease of native coronary artery without angina pectoris; J44.9 Chronic obstructive pulmonary disease, unspecified; E03.9 Hypothyroidism, unspecified; K21.9 Gastro-esophageal reflux disease without esophagitis; F25.9 Schizoaffective disorder, unspecified; E11.40 Type 2 diabetes mellitus with diabetic neuropathy, unspecified; E11.51 Type 2 diabetes mellitus with diabetic peripheral angiopathy without gangrene; G51.0 Bell's palsy; E66.9 Obesity, unspecified; N18.2 Chronic kidney disease, stage 2 (mild); E11.22 Type 2 diabetes mellitus with diabetic chronic kidney disease; N40.0 Benign prostatic hyperplasia without lower urinary tract symptoms; E78.00 Pure hypercholesterolemia, unspecified; D63.1 Anemia in chronic kidney disease; I25.2 Old myocardial infarction; Z95.5 Presence of coronary angioplasty implant and graft; Z79.899 Other long term (current) drug therapy; Z79.84 Long term (current) use of oral hypoglycemic drugs; Z79.890 Hormone replacement therapy; Z95.1 Presence of aortocoronary bypass graft; Z79.82 Long term (current) use of aspirin; Z68.32 Body mass index [BMI] 32.0-32.9, adult; Z85.46 Personal history of malignant neoplasm of prostate
CPT/HCPCS: 36415; 36416; 71045; 75625; 80053; 80061; 82553; 82565; 82728; 83540; 83550; 83735; 83880; 84484; 85014; 85018; 85025; 85027; 85049; 93005; 93306; 93458; 93798; 94640; 94664; 94760; C1769; J1644; J1650; J1815; J1940; J2001; J2270; J2920; J7620; Q9967

== ENCOUNTER 2020-12-18 17:44 | Emergency (ER) | payer OTHER ==
[2020-12-18 18:38] LABS: #Basophils 0.1 thou/uL (0.0-0.2); #Eosinphils 0.1 thou/uL (0.0-0.7); #Lymphocytes 1.4 thou/uL (1.20-3.40); #Monocytes 0.7 thou/uL (0.11-0.59); #Neutrophils 5.6 thou/uL (1.40-6.50); %Basophils 1.1 % (0.0-1.0); %Eosinophils 1.4 % (0.0-10.0); %Lymphocytes 17.8 % (21.0-51.0); %Monocytes 8.8 % (0.0-10.0); Hemoglobin 10.8 g/dL (14.0-18.0); Mean Corpuscular HGB CONC 31.6 g/dL (32.0-36.0); Mean Corpuscular Hemoglobin 27.6 pg (27.0-31.0); Mean Corpuscular Volume 87.2 fL (78.0-98.0); Platelet Count 230 thou/uL (130-400); RBC Distribution Width 16.5 % (11.5-14.5); Red Blood Cell (RBC) Count 3.91 mill/uL (4.70-6.10); White Blood Cell (WBC) Count 7.9 thou/uL (4.8-10.8)
--- NOTE | 2020-12-18 18:40 | RAD ---
Chest AP view INDICATION: COPD exacerbation COMPARISON: October 21, 2020 FINDINGS: Lungs: Bilateral pneumonia is clear. Cardiac silhouette: Mild cardiomegaly and post-CABG changes stable Pulmonary vasculature: Normal Pleural spaces: No pleural effusion or pneumothorax is demonstrated. Upper abdomen: No abnormality seen. Osseous structures: No acute osseous abnormality. Additional findings: None. IMPRESSION: Clearance of the bilateral airspace opacities suspicious for pneumonia. No definite acute cardiac pul monary abnormality demonstrated. Stable mild cardiomegaly without evidence of cardiac decompensation.
[2020-12-18] MEDS ORDERED: Furosemide 40 MG/4 ML VIAL ONE (18:52)
[2020-12-18] MEDS ORDERED: Nitroglycerin 2% Ointment 1 INCH/1 GM Packet ONE (18:52)
[2020-12-18] MEDS ORDERED: Aspirin Chewable 81 MG TAB ONE (18:52)
[2020-12-18 19:09] LABS: ALT (SGPT) 17 U/L (8-55); AST (SGOT) 13 U/L (5-34); Albumin 3.4 g/dL (3.4-4.8); Alkaline Phosphatase 94 U/L (40-110); Anion Gap 14 mmol/L (10-20); BUN (Urea Nitrogen) 16 mg/dL (8.4-25.7); Bilirubin, Total 0.6 mg/dL (0.2-1.2); CK (CPK) 209 U/L (30-200); Calc. Creatinine Clearance 0 mL/min (70-130); Carbon Dioxide 26 mmol/L (23-31); Chloride 104 mmol/L (98-107); Glucose 117 mg/dL (80-115); Potassium 3.5 mmol/L (3.5-5.1); Protein, Total 6.4 g/dL (5.8-8.1); Sodium 140 mmol/L (136-145)
== END 2020-12-18 21:13 ==
LOC: ERS 17:44 → EEVIPCON 17:44 → ERS 21:13
DX: I11.0 Hypertensive heart disease with heart failure (principal); I50.9 Heart failure, unspecified; E11.40 Type 2 diabetes mellitus with diabetic neuropathy, unspecified; I25.2 Old myocardial infarction; J44.9 Chronic obstructive pulmonary disease, unspecified; I25.10 Atherosclerotic heart disease of native coronary artery without angina pectoris; G51.0 Bell's palsy; K21.9 Gastro-esophageal reflux disease without esophagitis; E03.9 Hypothyroidism, unspecified; Z87.891 Personal history of nicotine dependence
CPT/HCPCS: 36415; 71045; 80053; 82550; 83880; 84484; 85025; 93005; 96374; J1940

== ENCOUNTER 2024-08-17 11:37 | Inpatient (IN) | payer OTHER ==
[2024-08-17 13:00] LABS: #Basophils 0.03 10x3/uL (0.0-0.2); %Basophils 0.3 % (0.0-1.0); %Eosinophils 0.3 % (0.0-10.0); %Lymphocytes 7.4 % (21.0-51.0); %Neutrophils 86.8 % (42.0-75.0); Hematocrit 31.5 % (42.0-52.0); Hemoglobin 10.5 g/dL (14.0-18.0); Mean Corpuscular HGB CONC 33.3 g/dL (32.0-36.0); Mean Corpuscular Hemoglobin 30.5 pg (27.0-31.0); Mean Corpuscular Volume 91.6 fL (78.0-98.0); Mean Platelet Volume 10.4 fL (7.4-10.4); Platelet Count 158 10x3/uL (130-400); RBC Distribution Width 14.2 % (11.5-14.5); Red Blood Cell (RBC) Count 3.44 mill/uL (4.70-6.10)
[2024-08-17 13:35] LABS: ALT (SGPT) 17 U/L (8-55); AST (SGOT) 18 U/L (5-34); Albumin 3.4 g/dL (3.4-4.8); Alkaline Phosphatase 69 U/L (40-110); Anion Gap 13 mmol/L (10-20); BUN (Urea Nitrogen) 38 mg/dL (8.4-25.7); Bilirubin, Total 0.3 mg/dL (0.2-1.2); Calc. Creatinine Clearance 0 mL/min (70-130); Calcium 8.5 mg/dL (7.8-10.44); Carbon Dioxide 27 mmol/L (23-31); Chloride 104 mmol/L (98-107); Estimated GFR 39; Glucose 129 mg/dL (83-110); Potassium 3.9 mmol/L (3.5-5.1); Protein, Total 6.4 g/dL (5.8-8.1); Sodium 140 mmol/L (136-145)
[2024-08-17] MEDS ORDERED: fentaNYL 50 mcg/mL 1 mL Vial ONE (13:43)
[2024-08-17] MEDS ORDERED: fentaNYL 50 mcg/mL 1 mL Vial SLOW IVP PRN (15:00)
[2024-08-17] MEDS ORDERED: Glucagon 1 MG/ML KIT IM PRN (15:04)
[2024-08-17] MEDS ORDERED: Dextrose 5% in Water 1,000 ML IV PRN (15:04)
[2024-08-17] MEDS ORDERED: Dextrose 50% Abboject 50 ML SYRINGE SLOW IVP PRN (15:04)
[2024-08-17] MEDS ORDERED: Ipratropium/Albuterol 3 ML NEB NEB PRN (15:04)
[2024-08-17] MEDS ORDERED: Insulin Regular, Human 100 UNIT/ML 10 ML VIAL SC PRN (15:04)
[2024-08-17 17:22] VITALS: BMI 27.7
[2024-08-17] MEDS: Acetaminophen 325 MG TAB PO SCH (17:28)
[2024-08-17] MEDS: Sodium Chloride 0.9% 1,000 ML IV SCH ×2 (17:48→17:54)
[2024-08-17] MEDS ORDERED: Insulin Lispro 100 UNIT/ML 10 ML VIAL SC PRN (18:02)
[2024-08-17] MEDS: Mometasone 200 MCG/Formoterol 5 MCG 120 PUFF INHALER INH SCH (19:24)
[2024-08-17] MEDS: cloNIDine 0.2 MG TAB PO SCH (23:29)
[2024-08-17] MEDS: Atorvastatin Calcium 40 MG TAB PO SCH (23:29)
[2024-08-17] MEDS: Ondansetron PF 4 MG/2 ML Vial IVP PRN (23:30)
[2024-08-17] MEDS: Famotidine/PF 20 mg/2ml Vial SLOW IVP SCH (23:31)
[2024-08-17] MEDS: hydrALAZINE 25 MG TAB PO SCH (23:31)
[2024-08-17] MEDS: Morphine 2 MG/ML VIAL SLOW IVP PRN (23:32)
[2024-08-18 06:20] LABS: #Basophils Less than 0.03 10x3/uL (0.0-0.2); #Eosinophils Less than 0.03 10x3/uL (0.0-0.7); %Basophils 0.3 % (0.0-1.0); %Lymphocytes 11.9 % (21.0-51.0); %Monocytes 10.7 % (0.0-10.0); %Neutrophils 76.7 % (42.0-75.0); Hematocrit 29.4 % (42.0-52.0); Hemoglobin 9.4 g/dL (14.0-18.0); Mean Corpuscular Hemoglobin 30.3 pg (27.0-31.0); Mean Corpuscular Volume 94.8 fL (78.0-98.0); Mean Platelet Volume 10.4 fL (7.4-10.4); Platelet Count 148 10x3/uL (130-400); RBC Distribution Width 14.4 % (11.5-14.5)
[2024-08-18 06:38] LABS: Anion Gap 13 mmol/L (10-20); BUN (Urea Nitrogen) 30 mg/dL (8.4-25.7); Calc. Creatinine Clearance 50 mL/min (70-130); Carbon Dioxide 27 mmol/L (23-31); Chloride 108 mmol/L (98-107); Estimated GFR 51; Glucose 131 mg/dL (83-110); Potassium 4.7 mmol/L (3.5-5.1); Sodium 143 mmol/L (136-145)
[2024-08-18] MEDS: Levothyroxine Sodium 75 MCG TAB PO SCH (06:39)
[2024-08-18 06:57] LABS: Calcium 8.8 mg/dL (7.8-10.44)
[2024-08-18] MEDS ORDERED: CEFAZOLIN 2 GM in Sodium Chloride 0.9% 100 ML IVPB SCH (07:45)
[2024-08-18] MEDS: Carvedilol 6.25 MG TAB PO SCH (08:35)
[2024-08-18] MEDS: DULoxetine 60 MG CAP PO SCH (08:37)
[2024-08-18] MEDS: carBAMazepine 200 MG TAB PO SCH (08:37)
[2024-08-18] MEDS: Amlodipine 10 MG TAB PO SCH (08:37)
[2024-08-18] MEDS: Isosorbide Mononitrate 60 MG ER.TAB PO SCH (08:37)
[2024-08-18] MEDS ORDERED: CEFAZOLIN 2 GM VIAL ONE (12:59)
[2024-08-18] MEDS ORDERED: PROPOFOL 20 ML ONE (13:16)
[2024-08-18] MEDS ORDERED: Rocuronium Bromide 10 MG/ML (10ML VIAL) ONE (13:17)
[2024-08-18] MEDS ORDERED: fentaNYL PF 100 MCG/2 ML SYRINGE ONE (13:17)
[2024-08-18] MEDS ORDERED: Lidocaine 1% PF 5 ML VIAL ONE (13:21)
[2024-08-18] MEDS ORDERED: Ondansetron PF 4 MG/2 ML Vial ONE (13:30)
[2024-08-18] MEDS ORDERED: ePHEDrine Sulfate 50 MG/10 ML VIAL ONE (13:30)
[2024-08-18] MEDS ORDERED: Dexamethasone 20 MG/5 ML VIAL ONE (13:30)
[2024-08-18] MEDS ORDERED: SUGAMMADEX SODIUM 200 MG/2 ML VIAL ONE (13:48)
[2024-08-18] MEDS ORDERED: fentaNYL 50 mcg/mL 1 mL Vial ONE ×3 (14:38→15:05)
[2024-08-18] MEDS: Insulin Lispro 100 UNIT/ML 10 ML VIAL SC PRN (17:20)
[2024-08-18] MEDS: CEFAZOLIN 2 GM in Sodium Chloride 0.9% 100 ML IVPB SCH (20:17)
[2024-08-19 06:32] LABS: #Basophils Less than 0.03 10x3/uL (0.0-0.2); #Eosinophils Less than 0.03 10x3/uL (0.0-0.7); %Basophils 0.2 % (0.0-1.0); %Eosinophils 0.2 % (0.0-10.0); %Lymphocytes 17.2 % (21.0-51.0); %Neutrophils 69.3 % (42.0-75.0); Hematocrit 27.5 % (42.0-52.0); Hemoglobin 8.4 g/dL (14.0-18.0); Mean Corpuscular HGB CONC 30.5 g/dL (32.0-36.0); Mean Corpuscular Hemoglobin 30.4 pg (27.0-31.0); Mean Corpuscular Volume 99.6 fL (78.0-98.0); Mean Platelet Volume 10.3 fL (7.4-10.4); Platelet Count 141 10x3/uL (130-400); RBC Distribution Width 14.5 % (11.5-14.5); Red Blood Cell (RBC) Count 2.76 mill/uL (4.70-6.10)
[2024-08-19 06:47] LABS: Anion Gap 13 mmol/L (10-20); BUN (Urea Nitrogen) 27 mg/dL (8.4-25.7); Calc. Creatinine Clearance 47 mL/min (70-130); Calcium 8.2 mg/dL (7.8-10.44); Carbon Dioxide 25 mmol/L (23-31); Chloride 107 mmol/L (98-107); Estimated GFR 48; Glucose 130 mg/dL (83-110); Potassium 4.5 mmol/L (3.5-5.1); Sodium 140 mmol/L (136-145)
[2024-08-19] MEDS ORDERED: Sodium Chloride 0.9% 1,000 ML IV SCH (12:45)
[2024-08-19] MEDS: Sodium Chloride 0.9% 1,000 ML IV SCH (15:10)
[2024-08-19] MEDS: Ferrous Sulfate 325 MG TAB PO SCH (17:44)
[2024-08-19] MEDS: Sodium Chloride 0.9% 500 ML IV SCH (20:15)
[2024-08-19] MEDS: Ascorbic Acid 500 mg Chewable Tablet PO SCH (20:49)
[2024-08-19] MEDS: Heparin 5,000 UNITS/ML VIAL SC SCH (20:50)
[2024-08-20 06:01] LABS: Hematocrit 24.7 % (42.0-52.0); Hemoglobin 7.7 g/dL (14.0-18.0)
[2024-08-20 06:17] LABS: Anion Gap 11 mmol/L (10-20); BUN (Urea Nitrogen) 30 mg/dL (8.4-25.7); Calc. Creatinine Clearance 51 mL/min (70-130); Carbon Dioxide 24 mmol/L (23-31); Chloride 109 mmol/L (98-107); Estimated GFR 52; Glucose 150 mg/dL (83-110); Potassium 4.7 mmol/L (3.5-5.1); Sodium 139 mmol/L (136-145)
[2024-08-20] MEDS: Methocarbamol 500 MG TAB PO SCH ×2 (09:55→19:41)
[2024-08-20] MEDS: Acetaminophen/Codeine 30-300mg Tablet PO SCH (11:23)
[2024-08-21 14:49] VITALS: BP 132/71; TEMP 98.1
== END 2024-08-21 19:08 | DRG 481 ==
LOC: ERS 11:37 → EEVIPCON 11:37 → SURG A 16:42
PROVIDERS: ADMIT Surgery; ATTEND Surgery
PROC: 0QS706Z Reposition Left Upper Femur with Intramedullary Internal Fixation Device, Open Approach (ICD-10-PCS; principal; 2024-08-18)
DX: S72.142A Displaced intertrochanteric fracture of left femur, initial encounter for closed fracture (principal); I13.0 Hypertensive heart and chronic kidney disease with heart failure and stage 1 through stage 4 chronic kidney disease, or unspecified chronic kidney disease; I50.32 Chronic diastolic (congestive) heart failure; N17.9 Acute kidney failure, unspecified; W18.30XA Fall on same level, unspecified, initial encounter; J44.9 Chronic obstructive pulmonary disease, unspecified; K21.9 Gastro-esophageal reflux disease without esophagitis; E03.9 Hypothyroidism, unspecified; F25.9 Schizoaffective disorder, unspecified; E78.5 Hyperlipidemia, unspecified; I25.10 Atherosclerotic heart disease of native coronary artery without angina pectoris; N18.2 Chronic kidney disease, stage 2 (mild); E11.22 Type 2 diabetes mellitus with diabetic chronic kidney disease; Z95.1 Presence of aortocoronary bypass graft; I25.2 Old myocardial infarction; Z79.4 Long term (current) use of insulin; Z79.82 Long term (current) use of aspirin; Z79.899 Other long term (current) drug therapy
CPT/HCPCS: 36415; 36416; 71045; 80048; 80053; 82550; 85014; 85018; 85025; 93005; 93010; 96374; 96376; C1713; G0390; J1100; J1815; J2272; J2405; J2704; J3010; J3490; J7030